=== PATIENT | male | born 1975 | race Caucasian/White ===

== ENCOUNTER → 2016-07-05 | Outpatient (CLI) | payer OTHER ==
[~2016-07-05] MED LIST: ALBU18002 INH; ALLO100T PO; ASPCH81X PO; ATOR-24 PO; CLOP1TAB15 PO; GLIP5TAB11 PO; INSU3INJ3 SQ; LEVO25TA5 PO; METF-384 PO; METO25TA3 PO; MOME100A INH; OXYC-106 PO; PANT40TA PO; PRED10TA PO; SITA25TA PO; SPRIN/30 INH
[2016-07-05 18:12] LABS: BASO % 0.8 %; BASO ABS # 0.09 K/uL (0-0.2); COMPLETE YES; EOS % 2.4 %; IG% 0.5 %; LYMPH % 21.9 %; MEAN CELL VOLUME 89.9 fL (80-100); MEAN CORPUSCULAR HEMOGLOBIN 31.8 pg (25-34); MEAN CORPUSCULAR HGB CONC 35.4 g/dl (32-36); MEAN PLATELET VOLUME 11.3 fL (7.4-10.4); MONO % 7.5 %; NEUT % 66.9 %; PLATELET COUNT 171 K/uL (130-400); RED BLOOD COUNT 5.34 M/uL (4.7-6.1); WHITE BLOOD COUNT 11.39 K/uL (4.8-10.8)
[2016-07-05 18:27] LABS: CHOLESTEROL/HDL RATIO 5.6
[2016-07-06 06:19] LABS: ESTIMATED AVERAGE GLUCOSE 174 mg/dl; HA1C FLAG Normal (Normal)
== END | disposition home or self-care (01) ==
LOC: C.LABSPEC 17:42
PROVIDERS: ATTEND Family Medicine
DX: E11.9 Type 2 diabetes mellitus without complications (principal)

== ENCOUNTER 2016-08-16 05:07 | Observation (INO) | payer OTHER ==
[2016-08-02 09:24] VITALS: BMI 34.0
--- NOTE | 2016-08-02 10:07 | PAT Medication Instructions ---
Service Date Aug 02, 2016. Current Home Medication List Albuterol Sulfate (Proair Respiclick), 2 PUFF INH Q4 PRN for SOB/Wheezing Allopurinol (Zyloprim), 100 MG PO QAM Aspirin (Aspirin Chewable), 81 MG PO QAM Atorvastatin (Lipitor), Unknown Dose PO HS Clopidogrel (Plavix), 75 MG PO QAM Glipizide (Glucotrol), 5 MG PO BID Insulin Detemir (Levemir Flextouch), 25 UNITS SQ HS Levothyroxine Sodium (Levothyroxine Sodium), Unknown Dose PO QAM Metformin Hcl (Glucophage), 1,000 MG PO BID Metoprolol Succ (Toprol Xl) (Toprol-Xl), 12.5 MG PO QAM Mometasone Furoate-Formoterol (Dulera 100/5 Mcg), 1 AER INH QAM Oxycodone/Acetaminophen 10MG/325MG (Percocet 10MG/325MG), 1 TAB PO Q4 PRN for Pain Pantoprazole (Protonix), 40 MG PO QAM Sitagliptin (Januvia), Unknown Dose PO QAM Tiotropium Moore (Spiriva Handihaler), 1 CAP INH QAM Medication Instructions For Your Scheduled Surgery Aspirin (Aspirin Chewable), 81 MG PO QAM (surgeon will call patient with instructions) Clopidogrel (Plavix), 75 MG PO QAM (surgeon will call patient with instructions) - Hold the following medications 48 hours prior to surgery: Metformin Hcl (Glucophage), 1,000 MG PO BID - Hold the following medications the morning of surgery: Sitagliptin (Januvia), Unknown Dose PO QAM Glipizide (Glucotrol), 5 MG PO BID - Take the following medications the morning of surgery with a sip of water: Tiotropium Moore (Spiriva Handihaler), 1 CAP INH QAM Pantoprazole (Protonix), 40 MG PO QAM Oxycodone/Acetaminophen 10MG/325MG (Percocet 10MG/325MG), 1 TAB PO Q4 PRN for Pain (can take up to four hours prior to surgery if needed) Metoprolol Succ (Toprol Xl) (Toprol-Xl), 12.5 MG PO QAM Mometasone Furoate-Formoterol (Dulera 100/5 Mcg), 1 AER INH QAM Levothyroxine Sodium (Levothyroxine Sodium), Unknown Dose PO QAM Allopurinol (Zyloprim), 100 MG PO QAM Albuterol Sulfate (Proair Respiclick), 2 PUFF INH Q4 PRN for SOB/Wheezing ( bring with you to hospital on day of surgery) - Take the following medications as scheduled the night before surgery: Oxycodone/Acetaminophen 10MG/325MG (Percocet 10MG/325MG), 1 TAB PO Q4 PRN for Pain Insulin Detemir (Levemir Flextouch), 25 UNITS SQ HS Glipizide (Glucotrol), 5 MG PO BID Atorvastatin (Lipitor), Unknown Dose PO HS Albuterol Sulfate (Proair Respiclick), 2 PUFF INH Q4 PRN for SOB/Wheezing If you have any questions please call us at [phone] or [phone] ( [place]) or [phone]
[2016-08-02 10:36] LABS: BASO % 0.4 %; BASO ABS # 0.05 K/uL (0-0.2); COMPLETE YES; EOS % 0.7 %; HEMATOCRIT 46.7 % (42-52); IG% 0.5 %; LYMPH % 12.5 %; MEAN CELL VOLUME 89.3 fL (80-100); MEAN CORPUSCULAR HEMOGLOBIN 31.4 pg (25-34); MEAN CORPUSCULAR HGB CONC 35.1 g/dl (32-36); MEAN PLATELET VOLUME 10.5 fL (7.4-10.4); MONO % 3.7 %; NEUT % 82.2 %; PLATELET COUNT 201 K/uL (130-400); RED BLOOD COUNT 5.23 M/uL (4.7-6.1); WHITE BLOOD COUNT 12.82 K/uL (4.8-10.8)
[2016-08-02 10:45] LABS: URINE APPEARANCE CLEAR (CLEAR); URINE BILIRUBIN NEG (NEG); URINE COLOR DK YELLOW; URINE NITRITE NEG (NEG); URINE SPECIFIC GRAVITY 1.034 (1.000-1.030); UROBILINOGEN NEG (NEG)
[2016-08-02 10:49] LABS: BUN/CREATININE RATIO 8.8 (10-20); CALCIUM 8.9 mg/dl (8.5-10.1); CREATININE 1.2 mg/dl (0.60-1.40); POTASSIUM 4.1 mmol/L (3.5-5.1)
[2016-08-02 10:50] LABS: PARTIAL THROMBOPLASTIN RATIO 1.1; PROTHROMBIN TIME (PATIENT) 10.5 SECONDS (9.0-12.0)
[2016-08-02 10:51] LABS: MANUAL MICROSCOPIC REQUIRED? NO; REVIEW REQ? NO
--- NOTE | 2016-08-03 11:18 | Anesthesiology Progress Note ---
Anesthesia Progress Note Date of Service Aug 03, 2016. Progress Notes Per anesthesia guidelines, elective surgeries usually cannot occur for at least one year after having MARIETTA placed. Patient had MARIETTA placed to LAD and Cx on . Patient currently on Plavix and ASA. Patient had stress test on 05/08/16 but MPHR only 70% (no ischemia noted but cannot exclude ischemia at higher heart rate). Patient saw cardio on 08/01/16 in regards to upcoming neck surgery. Towel Folder spoke with surgeon. Per surgeon, cervical surgery is urgent matter for patient and without intervention patient will have permanent nerve damage secondary to spinal compression. Towel Folder recommended dual antiplatelet therapy with Plavix and ASA which surgeon agrees he will continue perioperatively. Patient was explained increased bleeding risk and he accepts risk. Discussed case with Dr. En Bhatia. Since surgery is an urgent matter with possible result of permanent nerve damage if procedure note done soon, will proceed with surgery. Patient was explained increased risk of both bleeding and increased risk of another ID since surgery is less than one year from MARIETTA placement. Patient accepts risks and is willing to proceed.
--- NOTE | 2016-08-15 12:10 | HISTORY & PHYSICAL EXAMINATION ---
DATE OF ADMISSION: 08/16/2016 He is being preoped for anterior cervical discectomy and fusion C5-C6 and C6-C7 cervical spine with iliac crest bone graft. HE HAS AN ALLERGY TO KEFLEX. MEDICAL HISTORY: Positive for angina, heart disease, heart attack, high cholesterol, obesity, asthma, sleep apnea, diabetes on insulin, hypothyroid. No kidney or liver pathology. Acid reflux. SOCIAL HISTORY: He is a nonsmoker, minimal alcohol. PAST SURGERIES: Include sinus surgery by Dr. Linares at [place]. ALLERGIES: ASPIRIN, KEFLEX. MEDICATIONS: Levothyroxine, metoprolol, allopurinol, glipizide, pantoprazole, atorvastatin, baby aspirin, and Ventolin. REVIEW: Denies any blurred vision, double vision, tinnitus, vertigo. His lungs were clear in the office. Denies any shortness of breath. Abdomen soft, nontender. Denies nausea, vomiting, urgency, frequency. Denies current chest pain. Does have some thyroid difficulties. Admits to neck pain, arm pain, trapezius pain and weakness. OBJECTIVE: GENERAL: He is alert, oriented. He is 6 feet 2 inches, 276. Moderate distress. HEENT: Essentially normal. Pupils react to light and accommodation. HEART: Normal S1, S2. LUNGS: Clear. ABDOMEN: Soft, nontender. SKIN: Demonstrates no lesions. NEUROLOGIC: Demonstrates hyperreflexia on the right hand side with Spurling maneuver and Lhermitte sign. His MRI scan demonstrates disc herniations at C5-C6 and C6-C7 with most pressure on the central canal and cord compression. IMPRESSION: A pleasant young gentleman, 40, with multiple other comorbidities including obesity, diabetes, hypertension, sleep apnea, and thyroid disease. From a spinal standpoint, he has spinal cord compression C5-C6 and C6-C7. DISPOSITION: We have offered him surgery for the difficulty. He will be first case on morning, 08/16/2016. It is a 2-level ACDF of the cervical spine, hopefully and possibly iliac crest bone graft as well and anterior plate. He will be in recovery room for about an hour. He may need ICU care afterward because of his other comorbidities. He will definitely need medical management.
[2016-08-16] VITALS (18 sets, daily range): BP systolic 120–153; BP diastolic 75–88; PULSE 78–99; TEMP 36.4–37; O2SAT 92–96; BMI 34.0; BMI 34.6
[~2016-08-16] VITALS: Ht 188 cm; Wt 122.1 kg
[2016-08-16] MEDS ORDERED: LACTATED RINGER'S 1000ML IV SCH (06:00)
[2016-08-16] MEDS ORDERED: CLINDAMYCIN 600 MG/54 ML D5W 54 ML IV SCH (06:00)
[2016-08-16] MEDS ORDERED: NSS 1000ML IV SCH (06:00)
[2016-08-16] MEDS ORDERED: FENTANYL CITRATE INJ 50 MCG/1 ML 2 ML VIAL ONE ×3 (07:04→09:18)
[2016-08-16] MEDS ORDERED: MIDAZOLAM HCL 1 MG/ML 2ML VIAL ONE (07:04)
[2016-08-16] MEDS ORDERED: THROMBIN FOR SOLN 20000 UNIT KIT ONE ×2 (07:04→07:05)
[2016-08-16] MEDS ORDERED: GELATIN SPONGE SZ 100 ONE (07:04)
[2016-08-16] MEDS ORDERED: BACITRACIN 50000 UNIT VIAL ONE (07:05)
[2016-08-16] MEDS ORDERED: BUPIVACAINE/EPINEPHRINE 0.5% MPF 1:200,000 30 ML VIAL ONE ×2 (07:05→07:17)
[2016-08-16] MEDS ORDERED: KETAMINE HCL INJ 50 MG/ML 10 ML VIAL ONE (07:05)
[2016-08-16] MEDS ORDERED: HYDROmorphone INJ 2 MG/ML SYR/VIAL ONE (07:05)
--- NOTE | 2016-08-16 07:13 | History & Physical Bridge Note ---
H&P Re-Evaluation Bridge Note: I have examined the patient, reviewed the History & Physical and in the interval since the performance of the History & Physical I have noted the following changes of clinical significance: No changes noted
[2016-08-16] MEDS ORDERED: ATROPINE SULFATE 0.1 MG/ML 5ML SYR IV PRN (07:30)
[2016-08-16] MEDS ORDERED: ONDANSETRON INJ 2 MG/ML 2 ML VIAL IV PRN ×2 (07:30→10:00)
[2016-08-16] MEDS ORDERED: LABETALOL HCL IV 5 MG/ML 20ML IV ONE ×3 (08:08→08:24)
[2016-08-16] MEDS ORDERED: LARYING-O-JET KIT (LTA) EXT ONE ×2 (08:10)
[2016-08-16] MEDS ORDERED: PROPOFOL IV EMULSION 10 MG/ML 20 ML VIAL IV ONE (08:10)
[2016-08-16] MEDS ORDERED: ROCURONIUM BROMIDE 10 MG/ML 5 ML VIAL ONE ×2 (08:10)
[2016-08-16] MEDS ORDERED: ONDANSETRON INJ 2 MG/ML 2 ML VIAL ONE (08:10)
[2016-08-16] MEDS ORDERED: DEXAMETHASONE SOD INJ 4 MG/ML VIAL ONE (08:10)
[2016-08-16] MEDS ORDERED: SODIUM CHLORIDE 0.9% INJ 10 ML VIAL ONE (08:46)
[2016-08-16] MEDS ORDERED: GLYCOPYRROLATE INJ 0.2 MG/ML VIAL ONE (09:30)
[2016-08-16] MEDS ORDERED: NEOSTIGMINE METHYLSULFATE 5 MG/5 ML SYR ONE (09:30)
--- NOTE | 2016-08-16 09:43 | DIAGNOSTIC IMAGING REPORT ---
Cervical SPINE, INTRAOPERATIVE FLUOROSCOPY HISTORY: ACDF C5 C7. FLUOROSCOPY TIME: 16 seconds. FINDINGS: Intraoperative fluoroscopy was provided for the cervical spine. 3 fluoroscopic spot images were obtained. Anterior cervical discectomy and fusion from C5 through C7. The hardware appears intact. IMPRESSION: Fluoroscopy provided for a C5-C7 ACDF.. Electronically signed by: Deo Garrett M.D. 08/16/2016 9:41 AM Dictated Date/Time: 08/16/2016 9:41 AM
--- NOTE | 2016-08-16 09:56 | [facility] Post Operative Brief Note ---
Immediate Operative Summary Operative Date Aug 16, 2016. Pre-Operative Diagnosis Spinal cord compression C5-C6 and C6-C7. Post-Operative Diagnosis Spinal cord compression C5-C6 and C6-C7. Procedure(s) Performed C5-C6, C6-C7 Anterior Cervical Discectomy and Fusion, with Iliac Crest Bone Graft Surgeon Dr. Joselito Hurtado Office Secretary Surgeon(s) Nicolás Pavon PA-C Estimated Blood Loss 20mL Findings cord compression C5-6, C6-7 Specimens None per surgeon Complication(s) None Disposition Recovery Room / PACU
[2016-08-16] MEDS ORDERED: NALOXONE HCL 0.4 MG/1 ML VIAL/CARP IV PRN (10:00)
[2016-08-16] MEDS ORDERED: RACEPINEPHRINE 2.25% NEBU SOLN 0.5 ML VIAL INH PRN (10:00)
[2016-08-16] MEDS ORDERED: MAGNESIUM HYDROXIDE SUSP 30 ML UDC PO PRN (10:00)
[2016-08-16] MEDS ORDERED: DEXAMETHASONE INJ 8 MG in SYRINGE 0 ML IV PRN (10:00)
[2016-08-16] MEDS ORDERED: LORAZEPAM INJ 0.5 MG in SYRINGE 0.75 ML IV PRN (10:00)
[2016-08-16] MEDS ORDERED: ACETAMINOPHEN IV 1,000 MG in EMPTY BAG 0 ML IV PRN (10:00)
[2016-08-16] MEDS ORDERED: HYDROmorphone INJ 0.5 MG/0.5 ML SYR IV PRN (10:00)
[2016-08-16] MEDS ORDERED: INSULIN HUMAN REGULAR SC STA (10:06)
[2016-08-16] MEDS ORDERED: NovoLIN-R INSULIN PER UNIT CHARGE ONE ×2 (10:12→11:06)
[2016-08-16] MEDS: HYDROmorphone INJ 0.5 MG/0.5 ML SYR IV PRN ×4 (10:20→10:40)
--- NOTE | 2016-08-16 10:23 | OPERATIVE REPORT ---
DATE OF OPERATION: 08/16/2016 PREOPERATIVE DIAGNOSIS: Spinal cord compression and nerve root compression cervical spine, namely C5-6 and C6-7. POSTOPERATIVE DIAGNOSIS: Same. PROCEDURE: Included 2-level ACDF of the cervical spine C5-6, C6-7 with structural left iliac crest autograft. SURGEON: Dr. Hurtado. CHECKOUT OPERATOR: Nicolás Pavon PA-C. COMPLICATIONS: Zero. BLOOD LOSS: Less than 20. OPERATION AND FINDINGS: PROCEDURE: The patient was taken to the operating room and generally intubated, anesthetic provided to the patient, kept on the supine position on the large table. We placed 5 pounds of traction underneath the mandible and the occipital. We secured the patient, padded up all soft tissue areas. We scrubbed first and then prepped both the iliac crest and the cervical spine. Draped the patient sterile. Antibiotics were given, no Hamlin catheter. We then made a transverse skin incision over the C6 vertebral body dissecting the soft tissue. We were fortunate we came right down on the C5-6 interval verifying this with C-arm. We then did formal discectomies at C5-6 and C6-7 cervical spine taking out all disc material. We were back and through the PLL. We were out laterally to the neural foramen. All conceivably visible disc material was retrieved. We had good visibility. We then went to the left iliac crest, made a skin incision, fascial incision, I harvested a structural autograft, essentially a cm in anterior height tapering to 8 mm approximately 15 mm across. This structural autograft was used with the Globus coalition device in the cervical spine area. Interbody device was placed into the intervals at C6-7, 5-6, fastened with the superior and inferior screw at 2 levels. The fit appeared to be anatomic. We placed the neck under a slight amount of compression. We irrigated, closed over a Malott drain with 2-0 Vicryl suture, 4-0 Monocryl on the skin. The iliac crest was closed with 1 Vicryl, 2-0 and 3-0 nylon. Sterile dressings applied. The patient returned to PACU improved stable condition. No complications. Sponge and needle count correct at the close. I attest to the content of the Intraoperative Record and any orders documented therein. Any exceptio ns are noted below.
[2016-08-16] MEDS: LABETALOL HCL IV 5 MG/ML 20ML IV PRN ×2 (10:34→10:47)
[2016-08-16] MEDS ORDERED: INSULIN HUMAN REGULAR SC ONE (11:00)
--- NOTE | 2016-08-16 11:04 | Anesthesiology Progress Note ---
Anesthesia Post Op Note Date & Time Aug 16, 2016 at 11:03 Vital Signs Pain Intensity: 0 Vital Signs Past 12 Hours Date Time Temp Pulse Resp B/P Pulse Ox O2 Delivery O2 Flow Rate FiO2 08/16/16 10:55 82 14 145/83 95 Nasal Cannula 3 08/16/16 10:45 88 14 145/94 94 Nasal Cannula 3 08/16/16 10:35 82 14 151/83 93 Nasal Cannula 3 08/16/16 10:30 91 14 143/97 93 Nasal Cannula 3 08/16/16 10:25 90 14 164/98 98 Mask 5 08/16/16 10:15 87 14 124/79 98 Mask 10 08/16/16 10:05 85 14 146/82 98 Mask 10 08/16/16 09:59 36.4 89 14 137/92 98 Mask 10 08/16/16 05:58 36.7 95 18 133/88 94 Room Air Notes Mental Status: alert / awake / arousable, participated in evaluation Pt Amnestic to Procedure: Yes Nausea / Vomiting: adequately controlled Pain: adequately controlled Airway Patency, RR, SpO2: stable & adequate BP & HR: stable & adequate Hydration State: stable & adequate Anesthetic Complications: no major complications apparent
[2016-08-16] MEDS ORDERED: IV FLUIDS COMPLETED PRN (11:30)
[2016-08-16] MEDS ORDERED: HYDROmorphone INJ 1 MG/ML SYR IV PRN (12:30)
[2016-08-16] MEDS ORDERED: ALBUTEROL HFA 8 GM INHALER INH PRN (12:30)
[2016-08-16] MEDS: SODIUM CHLORIDE 0.9% 1000ML 1,000 ML IV SCH ×2 (12:37→21:55)
[2016-08-16] MEDS: DEXAMETHASONE INJ 6 MG in SYRINGE 0 ML IV SCH ×2 (13:54→21:55)
--- NOTE | 2016-08-16 15:41 | Discharge Instructions ---
Discharge Instructions Date of Service Aug 16, 2016. Admission Reason for Admission: Cervical Disc Herniation, Spinal Stenosis Discharge Discharge Diagnosis / Problem: spinal stenosis Discharge Goals Goal(s): Improve function Activity Recommendations Activity Limitations: as noted below Lifting Limitations: until after follow-up appointment Exercise/Sports Limitations: until after follow-up appointment May Resume Sexual Activity: after follow-up appointment Shower/Bathe: keep incision dry Driving or Machine Use: . Instructions / Follow-Up Instructions / Follow-Up MEDICATIONS: Please take your prescriptions as instructed at your pre-op appointment. SPECIAL CARE: The following information is intended to answer some of the common questions and concerns regarding your surgery. Each patient is an individual and receives individual counselling throughout the course of treatment, from diagnosis to surgery all the way through recovery. What follows is not an exhaustive list, but should be a useful guide to some of the common questions and concerns patients have regarding their surgeries. These are not provided to keep you from calling us; rather, they give you something accurate and concrete to reference as you recover from your procedure. If you need us, we are available to you. As always, if you are not sure about something, call us at [phone]. MEDICAL EMERGENCIES: For these conditions, call 911 or go to your local hospital-based Emergency Department - not [facility] or equivalent. * Paralysis * Severe chest pain or difficulty breathing * Swelling or redness of either leg Spine procedures can be rather complex and though complications are rare, they do occur. In such cases, effective advice regarding emergency situations cannot always be addressed over the telephone. You may be referred to the emergency department for more effective management of your problem. Activity Limitations: It is important to give your body time to heal, so please limit your activities : * In general, don't do anything that moves your spine too much. You should avoid contact sports, twisting or heavy lifting while you recover. * 5-10 pounds is all you should attempt to lift. * You should not plan on driving for approximately 3 weeks and you should avoid traveling more than 30-45 minutes at a time. Longer trips should be broken down with walking breaks spaced appropriately. * Physical therapy is not usually required. * Walking and good posture practices will help you recover and regain your function. * Avoid straining or sudden changes in position. * In general, the goal is to take it easy and recover. Don't cause any new problems. Just relax. Showers: * Do not take a bath, use a Jacuzzi or hot tub or otherwise submerge your incision. * It is usually safe to take a shower 4-5 days after your surgery. * Your incision does not require any special creams or ointments. * Simply clean it with soap and water, dry and re-dress with a clean bandage afterwards. Incision: * Keep incision clean, dry and protected until your first follow-up appointment. * Some amount of drainage and redness is normal. Any drainage should be fairly clear and not have a foul odor. * If you feel anything is wrong or you have excessive drainage, please call us. * Your stitches and lc will be removed 10-14 days after your surgery. At the time of your first post-op visit. * Neck surgeries are typically closed with a suture underneath the skin. The steri-strips over the incision should be maintained until we see you in the office. Bracing: * You may be provided with a back or neck brace to encourage good posture and prevent injury. It will remind you not to do too much as you heal and will alert others to the fact that you have had a surgery. * Back braces may be removed for showers and when you are resting at home. They must be worn when you are walking around for any period of time or for travel. * For neck surgery, you will likely be provided with two cervical collars. The soft collar (Morrow or foam rubber) is worn most commonly throughout the day and while sleeping. The plastic collar (provided at the hospital) is for showering/bathing. * Except while eating, collars should remain in place. More specifically, bracing is provided for a purpose and should be worn. * Please obtain your brace or collars prior to your operation and bring them to the hospital with you on the day of surgery. * You should also bring your collars to your post-op appointment with Dr. Hurtado. You should always take good care of your body and practice healthy habits, especially following surgery. You should: * Follow your doctor's treatment plan * Sit and stand properly with good posture (ears over shoulders, shoulders over hips) Don't slouch * Learn to lift correctly * Exercise regularly (low-impact aerobic exercise is especially good, but check with your doctor first) * Generally, be up and walking for 5-10 minutes at a time at least 3-4 times per day from the day you get home * Increasing walking to tolerance until you can walk for 20-30 minutes at a time * Attain and maintain a healthy body weight * Eat healthy foods ( a well-balanced, low-fat diet rich in fruits and vegetables) and get enough calcium * Avoid excessive use of alcohol When to call our office - If you notice any of the following: * Increased pain not relieve by pain medicine * Fevers greater then 100 degrees F, chills or flu symptoms * Increased redness around incision * Drainage from the incision that is not clear * Any foul smelling drainage * Swelling or fluid collection beneath the skin Miscellaneous: * In the hospital, you may be given a walker or cane for support while walking. These are temporary needs and are intended to prevent injuries due to falls. You may discontinue them when you feel strong and steady enough on your feet. * Sleep in a comfortable position. We find that many patients find a lounge chair or recliner with several pillows to be beneficial in the early post-operative period. * The support stockings should be used for 7-10 days and may be discontinued when you are back to walking more and conducting usual household activities. No problem is insignificant. We are here to help you and get you well. Contact us at [phone]. Definitions: Foraminotomy: If part of the disc or a bone spur (osteophyte) is pressing on a nerve as it leaves the vertebra (through an exit called the foramen), a foraminotomy may be done. Otomy means "to make an opening." A foraminotomy is making the opening of the foramen larger, so the nerve can exit without being compressed. Laminotomy: Similar to the foraminotomy, a laminotomy makes a larger opening, this time in your bony plate protecting your spinal canal and spinal cord (the lamina). The lamina may be pressing on your nerve, so the surgeon may make more room for the nerves using a laminotomy. Laminectomy: Sometimes, a laminotomy is not sufficient. The surgeon may need to remove all or part of the lamina. This procedure is called a laminectomy. This can often be done at many levels without any harmful effects. Current Hospital Diet Patient's current hospital diet: Full Liquid Diet; advance as tolerated Discharge Diet Recommended Diet: Full Liquid Diet Procedures Procedures Performed: C5-C6, C6-C7 Anterior Cervical Discectomy and Fusion, with Iliac Crest Bone Graft Pending Studies Studies pending at discharge: no Laboratory Results Hemoglobin A1c Test 07/05/16 13:47 Range/Units Estimated Average Glucose 174 mg/dl Hemoglobin A1c 7.7 H 4.5-5.6 % Lipid Panel Test 07/05/16 13:47 Range/Units Triglycerides Level 326 H 0-150 mg/dl Cholesterol Level 200 0-200 mg/dl HDL Cholesterol 36 mg/dl Cholesterol/HDL Ratio 5.6 LDL Cholesterol, Calculated 99 mg/dl Medical Emergencies . Who to Call and When: Medical Emergencies: If at any time you feel your situation is an emergency, please call 911 immediately. . Non-Emergent Contact Non-Emergency issues call your: Surgeon . "Provider Documentation" section prepared by Joselito Hurtado. VTE Core Measure Inpt VTE Proph given/why not?: Treatment not indicated
[2016-08-16] MEDS: HYDROCODONE/ACETAMOPHEN 5/325MG TAB PO PRN (16:15)
[2016-08-16] MEDS: CLINDAMYCIN IV 600 MG in DEXTROSE 5% ADD-VANTAGE 50ML 50 ML IV SCH ×2 (16:57→23:29)
[2016-08-16] MEDS ORDERED: GLUCAGON FOR INJ 1 MG VIAL SQ PRN (17:30)
[2016-08-16] MEDS ORDERED: DEXTROSE 50% 50 ML SYR IV PRN (17:30)
[2016-08-16] MEDS ORDERED: GLUCOSE 10 TABS/TUBE PO PRN (17:30)
[2016-08-16] MEDS ORDERED: GLUCOSE 40% GEL 15 GM TUBE PO PRN (17:30)
[2016-08-16] MEDS ORDERED: PHARMACY GLYCEMIC MGMT CONSULT PRN (17:44)
--- NOTE | 2016-08-16 18:42 | Medical Consult ---
Consultation Date of Consultation: Aug 16, 2016. Attending Physician: Joselito Hurtado DO Reason for Consultation: Post OP medical care History of Present Illness Patient is a 40 yr old male with PMH of DM II on Insulin, Rheumatoid arthritis, CAD S/P Stents, Hypothyroidism, dyslipidemia, ZOË on CPAP, Gout, Asthma was admitted post surgery after undergoing anterior cervical discectomy and fusion C5-C6 and C6-C7 cervical spine with iliac crest bone graft. Patient is interviewed and examined post OP. Patient states he is doing well post OP. Denies any chest pain, SOB, dizziness, headache, nausea, vomiting, abd pain or pain at surgical site. His vitals are stable post OP. States having left UE weakness, numbness and tingling since 3 months duration and was evaluated by and diagnosed to have spinal cord compression of C5-C6 and C6-C7. Patient had undergone elective cervical discectomy. Past Medical/Surgical History Medical Problems: (1) Asthma Status: Chronic (2) CAD (coronary artery disease) Status: Chronic (3) Diabetes mellitus Status: Chronic (4) Dyslipidemia Status: Chronic (5) Gout Status: Chronic (6) Gout Status: Chronic (7) Hypothyroid Status: Chronic (8) ZOË (obstructive sleep apnea) Status: Chronic (9) Rheumatoid aortitis Status: Chronic SURGICAL HISTORY: CORONARY ARTERY STENTING SINUS SURGERY Family History Reviewed. Not relevant Social History Smoking Status: Former Smoker Alcohol Use: socially Drug Use: none Allergies Coded Allergies: Aspirin (Verified Allergy, Intermediate, WHEEZING, 08/16/16) Cephalexin (Verified Allergy, Unknown, HIVES, 08/16/16) Home Medications Reviewed Current Inpatient Medications Current Inpatient Medications Medications (Trade) Dose Ordered Sig/Linsey Route Start Time Stop Time Status Last Admin Dose Admin Lactated Ringer's 1,000 ml @ 15 mls/hr Q24H IV 08/16/16 06:00 08/17/16 05:59 08/16/16 06:22 15 MLS/HR Sodium Chloride (Nss 1000ml) 1,000 ml @ 15 mls/hr Q24H IV 08/16/16 06:00 08/17/16 05:59 Racepinephrine 0.5 ml 0.5 ml ONE PRN INH 08/16/16 10:00 08/16/16 23:59 Acetaminophen/ Empty Bag (Ofirmev Iv/ Empty Iv Bag 100ml) 100 ml @ 400 mls/hr Q8H PRN IV 08/16/16 10:00 09/15/16 09:59 Hydromorphone HCl (Dilaudid Inj) 0.5 mg Q3H PRN IV 08/16/16 10:00 08/30/16 09:59 Magnesium Hydroxide (Milk Of Magnesia Susp) 30 ml DAILY PRN PO 08/16/16 10:00 09/15/16 09:59 Docusate Sodium (coLACE CAP) 100 mg BID PO 08/16/16 21:00 09/15/16 20:59 Ondansetron HCl 4 mg 4 mg Q6 PRN IV 08/16/16 10:00 09/15/16 09:59 Clindamycin Phosphate 600 mg/ Dextrose 54 ml @ 100 mls/hr Q8H IV 08/16/16 16:00 08/17/16 08:33 08/16/16 16:57 100 MLS/HR Lorazepam 0.5 mg/ Syringe 1 ml @ 1 mls/min Q8H PRN IV 08/16/16 10:00 09/15/16 09:59 Dexamethasone Sodium Phosphate 6 mg/Syringe 1.5 ml @ 1 mls/min Q8H IV 08/16/16 14:00 08/17/16 06:02 08/16/16 13:54 1 MLS/MIN Sodium Chloride (Nss 1000ml) 1,000 ml @ 80 mls/hr [id number] IV 08/16/16 09:53 08/17/16 09:52 08/16/16 12:37 80 MLS/HR Acetaminophen/ Hydrocodone Bitart (Alvin 5/325 Tab) 1 tablet for pain scale ... Q4H PRN PO 08/16/16 10:00 08/30/16 09:59 08/16/16 16:15 2 TAB Bisacodyl (Dulcolax Tab) 5 mg DAILY PRN PO 08/18/16 06:00 09/17/16 05:59 Bisacodyl 10 mg 10 mg DAILY PRN OR 08/18/16 06:00 09/17/16 05:59 Dexamethasone Sodium Phosphate/ Syringe (Decadron Inj/ Syringe) 2 ml @ 1 mls/min ONE PRN IV 08/16/16 10:00 08/16/16 23:59 Naloxone HCl (Narcan Inj) 0.1 mg Q5M PRN IV 08/16/16 10:00 09/15/16 09:59 Allopurinol (Zyloprim Tab) 100 mg QAM PO 08/17/16 09:00 09/16/16 08:59 Aspirin (Ecotrin Tab) 81 mg QAM PO 08/17/16 09:00 09/16/16 08:59 Clopidogrel Bisulfate (plAVix TAB) 75 mg QAM PO 08/17/16 09:00 09/16/16 08:59 Metoprolol Succinate (Toprol Xl Tab) 12.5 mg QAM PO 08/17/16 09:00 09/16/16 08:59 Pantoprazole Sodium (Protonix Tab) 40 mg QAM PO 08/17/16 09:00 09/16/16 08:59 Tiotropium [place] (Spiriva Handihaler Inhaler) 1 puff QAM INH 08/17/16 09:00 09/16/16 08:59 Albuterol (Ventolin Hfa Inhaler) 2 puffs Q4H PRN INH 08/16/16 12:30 09/15/16 12:29 Miscellaneous (Iv Fluids Completed) 1 ea PRN PRN N/A 08/16/16 11:30 08/16/17 11:29 Hydromorphone HCl (Dilaudid Inj) 1 mg Q3H PRN IV 08/16/16 12:30 08/30/16 12:29 Insulin Aspart (novoLOG ASPART) SLIDING SCALE If C... ACHS SC 08/16/16 18:05 09/15/16 18:04 Glucose (Glucose 40% Gel) 15-30 GRAMS 15 GRAMS... UD PRN PO 08/16/16 17:30 09/15/16 17:29 Glucose (Glucose Chew Tab) 4-8 Tablets 4 Tabl... UD PRN PO 08/16/16 17:30 09/15/16 17:29 Dextrose (Dextrose 50% 50ML Syringe) 25-50ML OF 50% DW IV FOR... UD PRN IV 08/16/16 17:30 09/15/16 17:29 Glucagon (Glucagon Inj) 1 mg UD PRN SQ 08/16/16 17:30 09/15/16 17:29 Miscellaneous Information (Consult Glycemic Management Pharmacy) 1 ea UD PRN N/A 08/16/16 17:44 09/15/16 17:43 Insulin Detemir (Levemir Flexpen/ FlexTouch) SEE PROTOCOL HS SQ 08/16/16 21:00 09/15/16 20:59 Levothyroxine Sodium (Synthroid Tab) 12.5 mcg QAM PO 08/17/16 09:00 09/16/16 08:59 UNV Atorvastatin Calcium (Lipitor Tab) 80 mg HS PO 08/16/16 21:00 09/15/16 20:59 UNV Ranitidine HCl (zANTac TAB) 150 mg HS PO 08/16/16 21:00 09/15/16 20:59 UNV Salmeterol Xinafoate/ Fluticasone (Advair Diskus 250/50 Inh) 1 puff BID INH 08/16/16 21:00 09/15/16 20:59 UNV Prednisone (PredniSONE TAB) 10 mg DAILY PO 08/17/16 09:00 09/16/16 08:59 UNV Review of Systems See HPI for pertinent positives & negatives. A total of 10 systems reviewed and were otherwise negative. Physical Exam Date Time Temp Pulse Resp B/P Pulse Ox O2 Delivery O2 Flow Rate FiO2 08/16/16 15:56 78 12 95 Nasal Cannula 3.0 08/16/16 14:23 36.8 90 16 125/75 96 Nasal Cannula 3.0 Humidified Oxygen 08/16/16 14:23 36.8 90 16 125/75 96 Nasal Cannula 3.0 Humidified Oxygen 08/16/16 13:40 36.4 80 18 120/76 95 Nasal Cannula 3.0 Humidified Oxygen 08/16/16 13:29 36.4 96 18 120/76 95 Nasal Cannula 3.0 Humidified Oxygen 08/16/16 12:30 36.5 80 18 123/82 95 Nasal Cannula 3.0 08/16/16 12:25 36.5 85 18 123/82 95 Nasal Cannula 3.0 08/16/16 12:11 84 12 94 Partial Rebreather 3.0 80 08/16/16 12:00 Nasal Cannula 3.0 Humidified Oxygen 08/16/16 11:55 36.7 85 16 136/82 95 Nasal Cannula 3.0 08/16/16 11:55 36.7 92 16 136/82 95 Nasal Cannula 3.0 85 08/16/16 11:36 95 Nasal Cannula 3.0 08/16/16 11:25 37.0 92 16 153/79 95 Nasal Cannula 3.0 08/16/16 11:24 37.0 92 16 153/79 92 Nasal Cannula 3.0 08/16/16 11:15 36.4 78 14 146/82 96 Nasal Cannula 3 08/16/16 11:05 36.4 90 14 143/83 95 Nasal Cannula 3 08/16/16 10:55 82 14 145/83 95 Nasal Cannula 3 08/16/16 10:45 88 14 145/94 94 Nasal Cannula 3 08/16/16 10:35 82 14 151/83 93 Nasal Cannula 3 08/16/16 10:30 91 14 143/97 93 Nasal Cannula 3 08/16/16 10:25 90 14 164/98 98 Mask 5 08/16/16 10:15 87 14 124/79 98 Mask 10 08/16/16 10:05 85 14 146/82 98 Mask 10 08/16/16 09:59 36.4 89 14 137/92 98 Mask 10 08/16/16 05:58 36.7 95 18 133/88 94 Room Air General Appearance: WD/WN, no apparent distress Head: normocephalic, atraumatic Eyes: normal inspection, PERRL, EOMI, sclerae normal ENT: normal ENT inspection, hearing grossly normal Neck: supple, no JVD, trachea midline, + pertinent finding (In Neck collar and surgical site in bandage on left side of neck) Respiratory/Chest: chest non-tender, lungs clear, normal breath sounds, no respiratory distress, no accessory muscle use Cardiovascular: regular rate, rhythm, no edema, no murmur Abdomen/GI: normal bowel sounds, non tender, soft Back: normal inspection Extremities/Musculoskelatal: normal inspection, no calf tenderness, no pedal edema, normal range of motion, + pertinent finding (Left iliac crest region in bandage) Neurologic/Psych: [employer] II-XII nml as tested, alert, normal mood/affect, oriented x 3, + pertinent finding (Minimal Left UE weakness. ) Skin: normal color, warm/dry, no rash Lymphatic: no adenopathy Laboratory Results Last 24 Hours Test 08/16/16 05:48 08/16/16 10:01 08/16/16 10:54 08/16/16 12:27 Bedside Glucose 136 mg/dl 286 mg/dl 308 mg/dl 299 mg/dl Assessment & Plan Spinal cord compression of C5-C6 and C6-C7 S/P discectomy and fusion C5-C6 and C6-C7 cervical spine with iliac crest bone graft POD # 0 Surgery done by Pain control, wound care, per orthopedic surgery Bowel regimen to prevent constipation PT/OT Vitals stable post OP DM II Uncontrolled likely secondary to post op stress and steroids Will hold oral diabetic meds Check A1c ISS, Levemir, Accu checks, Diabetic diet Pharmacy Glycemic control consult CAD S/P stents: Denies any chest pain Continue ASA, plavix, BB, statins Hypothyroidism: Continue Levothyroxine Asthma: No signs of exacerbation Continue home inhalers Rheumatoid arthritis: Continue PO prednisone Takes prednisone 10mg daily ZOË: Continue CPAP at bedtime Gout: Continue allopurinol GERD: Continue PPI, Ranitidine DVT PX: Per Primary team Currently on SCDs code status: full code DISPOSITION: Per Primary team Thank you for this consultation. We will follow the patient with you during their hospital stay. You can reach a [facility] via pager @ .
[2016-08-16] MEDS: INSULIN ASPART 100 UNITS/ML 3 ML PEN SC SCH ×2 (18:54→21:01)
--- NOTE | 2016-08-16 20:35 | Pharmacy Progress Note ---
Glycemic Control Intl Consult Date of Service Aug 16, 2016. Scope Glycemic Pharmacist consulted by Dr Palafox on 08/16/16 for glycemic control and to write orders per [facility] inpatient glycemic control protocol Objective Weight (Kilograms): 122.100 Accuchecks BSG (last 24hrs): Test 08/16/16 05:48 08/16/16 10:01 08/16/16 10:54 08/16/16 12:27 Bedside Glucose 136 mg/dl (70-99) 286 mg/dl (70-99) 308 mg/dl (70-99) 299 mg/dl (70-99) HbA1c 07/05/16 HgbA1c 7.7% Recent Pertinent Medications Outpatient Anti-diabetic Regimen: * Levemir 25 units hs, Glipizide 5 mg bid, Metformin 1 Gm bid, Januvia 25 mg daily (note patient was taking prednisone) * A1c = 7.7 % 07/05/16 The patient is currently receiving: * Basal insulin: Levemir 25 units every hs * Correctional Insulin: Novolog Correction per scale ACHS Goal Range: Low 120 mg/dL - High 160 mg/dL Correction Factor: 35 mg/dL/unit * Prandial insulin: Per carb ratio of 1 unit per 12 grams CHO consumed * Oral Agents: none Risk Factors for Insulin Resistance: * Steroids: dexamethasone 8mg in OR, then 6 mg q8h x 3 doses; will restart home dose prednisone 10 mg daily in am * Infection: on clindamycin perioperatively * Pressors: no * IVF: NS @ 80 ml/hr * Recent Surgery: OR today spinal surgery * Diet: npo advancing to full liquid * Mechanical Ventilation: no Assessment & Plan ASSESSMENT: * ADA & AACE recommend a goal blood sugar range 140-180 mg/dl for the majority of critically ill & non-critically ill patients. However, more stringent targets may be selected in individual cases. * 40 yo type 2 diabetic not well controlled on Levemir and oral meds,now S/P spinal surgery. BSG's rising due to stress of surgery and extra steroids perioperatively. Will start weight-based correction and carb ratio, continue Levemir, and reassess in am. PLAN FOR INPATIENT GLYCEMIC CONTROL: * Holding outpatient oral diabetes medications * Basal insulin with Levemir 25 units SQ hs, give 15 units if BSG is less than 100 * Correctional Insulin with NOVOLOG per scale ACHS or Q6hrs while NPO * Goal Range: Low 100 mg/dL - High 140 mg/dL * Correction Factor: 20 mg/dL/unit * Nutritional / Prandial insulin per carb ratio of 1 unit per 8 grams CHO consumed * Please note that the plan above was derived based on current level of insulin resistance and hospital stress. These recommendations are appropriate for inpatient admission only. Plan of care upon discharge will need to be reassessed to avoid potential outpatient hypo/hyperglycemia. Thank you.
[2016-08-16] MEDS: DOCUSATE SODIUM 100 MG CAP PO SCH (20:57)
[2016-08-16] MEDS: FLUTICASONE/SALMETEROL 250/50 (ADVAIR) 14 PUFF/1 INHALER INH SCH (20:57)
[2016-08-16] MEDS ORDERED: INSULIN DETEMIR FLEXPEN/FLEX TOUCH 100 UNITS/ML 3ML SQ SCH (21:00)
[2016-08-16] MEDS ORDERED: RANITIDINE HCL 150 MG TAB PO SCH (21:00)
[2016-08-16] MEDS ORDERED: ATORVASTATIN 40 MG TAB PO SCH (21:00)
[2016-08-17] VITALS (11 sets, daily range): BP systolic 135–168; BP diastolic 79–95; PULSE 87–105; TEMP 36.4–36.8; O2SAT 92–95; Ht 188 cm; Wt 122.1 kg
[2016-08-17] MEDS: HYDROCODONE/ACETAMOPHEN 5/325MG TAB PO PRN ×3 (00:29→13:12)
[2016-08-17] MEDS ORDERED: INSULIN ASPART 100 UNITS/ML 3 ML PEN SC SCH (02:00)
[2016-08-17 05:32] LABS: BASO ABS # 0.01 K/uL (0-0.2); COMPLETE YES; HEMATOCRIT 40.7 % (42-52); IG% 0.6 %; LYMPH % 6.7 %; LYMPH ABS # 1.44 K/uL (1.2-3.4); MEAN CELL VOLUME 87.3 fL (80-100); MEAN CORPUSCULAR HEMOGLOBIN 30.7 pg (25-34); MEAN CORPUSCULAR HGB CONC 35.1 g/dl (32-36); MEAN PLATELET VOLUME 10.2 fL (7.4-10.4); MONO % 5.5 %; NEUT % 87.2 %; PLATELET COUNT 249 K/uL (130-400); RED BLOOD COUNT 4.66 M/uL (4.7-6.1); WHITE BLOOD COUNT 21.41 K/uL (4.8-10.8)
[2016-08-17] MEDS: DEXAMETHASONE INJ 6 MG in SYRINGE 0 ML IV SCH (05:56)
[2016-08-17 05:58] LABS: BUN/CREATININE RATIO 11.3 (10-20); CALCIUM 8.4 mg/dl (8.5-10.1); CREATININE 1.2 mg/dl (0.60-1.40); POTASSIUM 4.2 mmol/L (3.5-5.1)
[2016-08-17] MEDS ORDERED: LEVOTHYROXINE 25 MCG TAB PO SCH (06:00)
[2016-08-17 06:41] LABS: ESTIMATED AVERAGE GLUCOSE 192 mg/dl; HA1C FLAG Normal (Normal)
[2016-08-17] MEDS: CLINDAMYCIN IV 600 MG in DEXTROSE 5% ADD-VANTAGE 50ML 50 ML IV SCH (08:08)
[2016-08-17] MEDS ORDERED: METFORMIN HCL 500 MG TAB PO SCH ×2 (08:30)
[2016-08-17] MEDS: FLUTICASONE/SALMETEROL 250/50 (ADVAIR) 14 PUFF/1 INHALER INH SCH (08:55)
[2016-08-17] MEDS: DOCUSATE SODIUM 100 MG CAP PO SCH (08:55)
[2016-08-17] MEDS ORDERED: TIOTROPIUM BROMIDE 5 PUFF/90 MCG INH INH SCH (09:00)
[2016-08-17] MEDS ORDERED: METOPROLOL SUCC 25MG EXT REL TAB PO SCH (09:00)
[2016-08-17] MEDS ORDERED: PANTOprazole SOD 40 MG TAB PO SCH (09:00)
[2016-08-17] MEDS ORDERED: ASPIRIN 81 MG ECTAB PO SCH (09:00)
[2016-08-17] MEDS ORDERED: ALLOPURINOL 100 MG TAB PO SCH (09:00)
[2016-08-17] MEDS ORDERED: CLOPIDOGREL BISULFATE 75 MG TAB PO SCH (09:00)
[2016-08-17] MEDS: INSULIN ASPART 100 UNITS/ML 3 ML PEN SC SCH ×2 (09:03→13:21)
--- NOTE | 2016-08-17 11:57 | Pharmacy Progress Note ---
Glycemic Control: Progress Nt Date of Service Aug 17, 2016. Scope Glycemic Pharmacist consulted by Dr Palafox on 08/16/16 for glycemic control and to write orders per [facility] inpatient glycemic control protocol. Objective Accuchecks BSG (last 24hrs): Test 08/16/16 12:27 08/16/16 18:34 08/17/16 02:04 08/17/16 05:11 Bedside Glucose 299 mg/dl (70-99) 330 mg/dl (70-99) 181 mg/dl (70-99) Random Glucose 250 mg/dl (70-99) Test 08/17/16 07:58 Bedside Glucose 312 mg/dl (70-99) Laboratory Data (last 24hrs) Test 08/17/16 05:11 Anion Gap 12.0 mmol/L BUN/Creatinine Ratio 11.3 Blood Urea Nitrogen 14 mg/dl Creatinine 1.20 mg/dl Hemoglobin A1c 8.3 % Potassium Level 4.2 mmol/L Sodium Level 136 mmol/L White Blood Count 21.41 K/uL Red Blood Count 4.66 M/uL Hemoglobin 14.3 g/dL Hematocrit 40.7 % Mean Corpuscular Volume 87.3 fL Mean Corpuscular Hemoglobin 30.7 pg Mean Corpuscular Hemoglobin Concent 35.1 g/dl Platelet Count 249 K/uL Mean Platelet Volume 10.2 fL Neutrophils (%) (Auto) 87.2 % Lymphocytes (%) (Auto) 6.7 % Monocytes (%) (Auto) 5.5 % Eosinophils (%) (Auto) 0.0 % Basophils (%) (Auto) 0.0 % Neutrophils # (Auto) 18.67 K/uL Lymphocytes # (Auto) 1.44 K/uL Monocytes # (Auto) 1.17 K/uL Eosinophils # (Auto) 0.00 K/uL Basophils # (Auto) 0.01 K/uL HbA1c: Test 08/17/16 05:11 Hemoglobin A1c 8.3 % (4.5-5.6) H Recent Pertinent Medications Outpatient Anti-diabetic Regimen: * Levemir 25 units Q HS * Glipizide 5mg PO BID * Metformin 1gm PO BID * Januvia 25mg Q AM * A1c = 7.7 % 07/05/16 The patient is currently receiving: * Basal insulin: Levemir Q HS: 15 units if BSG less than 100; 25 units if BSG 100 or greater * Correctional Insulin: Novolog Correction per scale ACHS Goal Range: Low 100 mg/dL - High 140 mg/dL Correction Factor: 20 mg/dL/unit * Prandial insulin: Per carb ratio of 1 unit per 8 grams CHO consumed * Oral Agents: None currently Risk Factors for Insulin Resistance: * Steroids: Dexamethasone 8mg IV given in OR 08/16 + 6mg IV Q 8 hrs x 3 doses; last dose given ~0600 08/17 * Infection: n/a * Pressors: n/a * IVF: NS @ 80cc/hr * Recent Surgery: POD # 1 ACDF * Diet: ordered T2DM diet and tolerating well * Mechanical Ventilation: n/a Assessment & Plan ASSESSMENT: 08/17/16 * Type 2 diabetic experiencing stress-induced / steroid-induced hyperglycemia in the post-op period * BSGs peaked at 344 last evening, but has since trended down a little overnight * The last dose of dexamethasone IV was given this AM, however I would expect the insulin resistance to persist for another 24-48 hrs given the biologic half- life of this steroid. * Will increase the Novolog correction and prandial insulin doses * Will also restart the patient's metformin as he is tolerating a diet and renal fxn has been assessed and adequate * Will continue a 0200 BSG check overnight tonight for additional coverage w/ Novolog rather than increasing the basal insulin dose as the steroid effects should begin to dissipate in the next 24-48 hrs * BSG pattern will be followed today as insulin doses may need increased even further. PLAN FOR INPATIENT GLYCEMIC CONTROL: PLAN FOR INPATIENT GLYCEMIC CONTROL: * Continuing Levemir 25 units SQ Q HS; but give 1/2 dose if BSG less than 110 ( 12 units) * Changing correction factor to 18 mg/dl/unit * Changing carb ratio to 1 unit per 6 grams CHO consumed * Continuing goal range Low 100 mg/dL - High 140 mg/dL * Add BSG check at 0200 tonight and cover w/ Novolog per the above parameters RECOMMENDATIONS FOR DISCHARGE: * Resume home regimen of Levemir + Glipizide + Metformin + Januvia; however consider adding a sliding scale to assist w/ glycemic control as patient reported having hyperglycemia when prednisone was started. It is the patient's understanding he was to continue the prednisone on discharge. Would recommend the following sliding scale on discharge (would recommend sending the Novolog pen used as inpatient home w/ him): * Novolog scale: BSG 150-175 give 1 unit; BSG 176-200 give 2 units; BSG 201- 225 give 3 units; BSG 226-250 give 4 units; BSG above 250 give 5 units * Please note that the plan above was derived based on current level of insulin resistance and hospital stress. These recommendations are appropriate for inpatient admission only. Plan of care upon discharge will need to be reassessed to avoid potential outpatient hypo/hyperglycemia. Thank you.
--- NOTE | 2016-08-17 12:21 | DISCHARGE SUMMARY ---
SUBJECTIVE: Minimal complaints of pain, no shortness of breath, confusion, chest pain. OBJECTIVE: Vital signs stable, alert, oriented. Wound is clean. ASSESSMENT: Status post spinal reconstruction cervical spine anterior. PROCEDURE: He will be discharged home later on today in improved stable condition. He has instructions, precautions provided on 2 different occasions. Collar for support. Medications at home. We will see him back in the office in 10-11 days. He is to call if any problems arise and that has been given as part of his instruction sheet.
[2016-08-18] MEDS ORDERED: INSULIN ASPART 100 UNITS/ML 3 ML PEN SC ONE (02:00)
[2016-08-18] MEDS ORDERED: BISACODYL 10 MG SUPP PR PRN (06:00)
[2016-08-18] MEDS ORDERED: BISACODYL 5 MG TABEC PO PRN (06:00)
== END 2016-08-17 14:37 | disposition home or self-care (01) ==
LOC: ENRESERVDT → ENRESERVTM → C.ACU 05:07 → C.3E 05:40
PROVIDERS: ADMIT Orthopaedic Surgery Orthopaedic Surgery of the Spine; ATTEND Orthopaedic Surgery Orthopaedic Surgery of the Spine
DX: G95.20 Unspecified cord compression (principal); Z79.82 Long term (current) use of aspirin; Z79.899 Other long term (current) drug therapy

== ENCOUNTER → 2016-09-06 | Outpatient (CLI) | payer OTHER ==
[2016-09-06 14:34] LABS: BASO % 0.4 %; BASO ABS # 0.04 K/uL (0-0.2); COMPLETE YES; EOS % 2.2 %; IG% 0.3 %; LYMPH % 21.2 %; LYMPH ABS # 2.01 K/uL (1.2-3.4); MEAN CELL VOLUME 91.5 fL (80-100); MEAN CORPUSCULAR HEMOGLOBIN 30.7 pg (25-34); MEAN CORPUSCULAR HGB CONC 33.6 g/dl (32-36); MEAN PLATELET VOLUME 10.4 fL (7.4-10.4); MONO % 6.7 %; NEUT % 69.2 %; PLATELET COUNT 221 K/uL (130-400); RED BLOOD COUNT 4.59 M/uL (4.7-6.1); WHITE BLOOD COUNT 9.46 K/uL (4.8-10.8)
[2016-09-06 14:50] LABS: ALT/SGPT 34 U/L (12-78); AST/SGOT 12 U/L (15-37); BLOOD UREA NITROGEN 8 mg/dl (7-18); BUN/CREATININE RATIO 7.2 (10-20); CALCIUM 8.4 mg/dl (8.5-10.1); CARBON DIOXIDE 23 mmol/L (21-32); CHLORIDE 107 mmol/L (98-107); GLUCOSE 166 mg/dl (70-99); POTASSIUM 3.8 mmol/L (3.5-5.1); SODIUM 141 mmol/L (136-145)
[2016-09-06 15:01] LABS: ALB/GLOB RATIO 1.1 (0.9-2); ALKALINE PHOSPHATASE 128 U/L (45-117)
== END | disposition home or self-care (01) ==
LOC: C.LABSPEC 14:01
PROVIDERS: ATTEND Family Medicine
DX: R50.9 Fever, unspecified (principal); R53.83 Other fatigue

== ENCOUNTER → 2016-10-09 | Outpatient (CLI) | payer OTHER ==
[2016-10-09 18:19] LABS: BASO ABS # 0.12 K/uL (0-0.2); COMPLETE YES; EOS % 2.2 %; HEMATOCRIT 45.5 % (42-52); IG% 0.3 %; LYMPH % 22.8 %; LYMPH ABS # 2.65 K/uL (1.2-3.4); MEAN CELL VOLUME 89.9 fL (80-100); MEAN CORPUSCULAR HEMOGLOBIN 30.8 pg (25-34); MEAN CORPUSCULAR HGB CONC 34.3 g/dl (32-36); MEAN PLATELET VOLUME 10.6 fL (7.4-10.4); MONO % 7.1 %; NEUT % 66.6 %; PLATELET COUNT 249 K/uL (130-400); RED BLOOD COUNT 5.06 M/uL (4.7-6.1)
[2016-10-09 18:27] LABS: ALT/SGPT 25 U/L (12-78); AST/SGOT 10 U/L (15-37); BLOOD UREA NITROGEN 11 mg/dl (7-18); BUN/CREATININE RATIO 11.9 (10-20); CARBON DIOXIDE 25 mmol/L (21-32); CHLORIDE 106 mmol/L (98-107); CREATININE 0.96 mg/dl (0.60-1.40); GLUCOSE 146 mg/dl (70-99); POTASSIUM 4.2 mmol/L (3.5-5.1); SODIUM 139 mmol/L (136-145)
[2016-10-09 18:29] LABS: ALB/GLOB RATIO 1.1 (0.9-2); ALKALINE PHOSPHATASE 138 U/L (45-117); CHOLESTEROL 172 mg/dl (0-200); CHOLESTEROL/HDL RATIO 5.5; HDL CHOLESTEROL 31 mg/dl; LDL CHOLESTEROL CALCULATED 81 mg/dl; TRIGLYCERIDES 299 mg/dl (0-150); VERY LOW DENSITY LIPOPROT CALC 60 mg/dl
[2016-10-09 18:32] LABS: CALCIUM 8.6 mg/dl (8.5-10.1)
[2016-10-10 07:02] LABS: ESTIMATED AVERAGE GLUCOSE 146 mg/dl; HA1C FLAG Normal (Normal)
== END | disposition home or self-care (01) ==
LOC: C.LABSPEC 17:57
PROVIDERS: ATTEND Family Medicine
DX: E11.9 Type 2 diabetes mellitus without complications (principal); E78.2 Mixed hyperlipidemia; J45.30 Mild persistent asthma, uncomplicated

== ENCOUNTER → 2017-01-10 | Outpatient (CLI) | payer OTHER ==
[2017-01-10 18:00] LABS: BASO % 0.5 %; BASO ABS # 0.07 K/uL (0-0.2); COMPLETE YES; EOS % 2.5 %; IG% 0.7 %; LYMPH % 27.3 %; LYMPH ABS # 3.65 K/uL (1.2-3.4); MEAN CELL VOLUME 88.9 fL (80-100); MEAN CORPUSCULAR HGB CONC 33.8 g/dl (32-36); MEAN PLATELET VOLUME 10.5 fL (7.4-10.4); MONO % 7.1 %; NEUT % 61.9 %; PLATELET COUNT 221 K/uL (130-400); RED BLOOD COUNT 5.06 M/uL (4.7-6.1); WHITE BLOOD COUNT 13.35 K/uL (4.8-10.8)
[2017-01-10 18:14] LABS: ALKALINE PHOSPHATASE 106 U/L (45-117); ALT/SGPT 18 U/L (12-78); AST/SGOT 11 U/L (15-37); BLOOD UREA NITROGEN 10 mg/dl (7-18); BUN/CREATININE RATIO 10.5 (10-20); CALCIUM 8.5 mg/dl (8.5-10.1); CARBON DIOXIDE 23 mmol/L (21-32); CHLORIDE 102 mmol/L (98-107); CREATININE 0.94 mg/dl (0.60-1.40); GLUCOSE 227 mg/dl (70-99); POTASSIUM 3.9 mmol/L (3.5-5.1); SODIUM 135 mmol/L (136-145)
[2017-01-10 18:50] LABS: ESTIMATED AVERAGE GLUCOSE 203 mg/dl; HA1C FLAG Normal (Normal)
== END | disposition home or self-care (01) ==
LOC: C.LABSPEC 17:39
PROVIDERS: ATTEND Family Medicine
DX: E11.9 Type 2 diabetes mellitus without complications (principal)

== ENCOUNTER → 2017-04-11 | Outpatient (CLI) | payer OTHER ==
[2017-04-11 18:25] LABS: BASO % 0.7 %; BASO ABS # 0.09 K/uL (0-0.2); COMPLETE YES; EOS % 2.4 %; HEMATOCRIT 44.1 % (42-52); IG% 0.7 %; LYMPH % 26.9 %; LYMPH ABS # 3.32 K/uL (1.2-3.4); MEAN CELL VOLUME 88.4 fL (80-100); MEAN CORPUSCULAR HEMOGLOBIN 31.9 pg (25-34); MEAN CORPUSCULAR HGB CONC 36.1 g/dl (32-36); MEAN PLATELET VOLUME 11.7 fL (7.4-10.4); MONO % 7.6 %; NEUT % 61.7 %; PLATELET COUNT 203 K/uL (130-400); RED BLOOD COUNT 4.99 M/uL (4.7-6.1); WHITE BLOOD COUNT 12.32 K/uL (4.8-10.8)
[2017-04-11 19:46] LABS: ALB/GLOB RATIO 0.9 (0.9-2); ALKALINE PHOSPHATASE 175 U/L (45-117); ALT/SGPT 28 U/L (12-78); AST/SGOT 13 U/L (15-37); BLOOD UREA NITROGEN 20 mg/dl (7-18); BUN/CREATININE RATIO 17.4 (10-20); CALCIUM 8.6 mg/dl (8.5-10.1); CARBON DIOXIDE 25 mmol/L (21-32); CHLORIDE 99 mmol/L (98-107); CHOLESTEROL 201 mg/dl (0-200); CREATININE 1.15 mg/dl (0.60-1.40); GLUCOSE 384 mg/dl (70-99); HDL CHOLESTEROL 25 mg/dl; POTASSIUM 3.9 mmol/L (3.5-5.1); SODIUM 132 mmol/L (136-145); TRIGLYCERIDES 1084 mg/dl (0-150)
[2017-04-11 20:09] LABS: BETA-HYDROXYBUTYRATE 1.81 mg/dL (0.2-2.81)
[2017-04-12 06:52] LABS: ESTIMATED AVERAGE GLUCOSE 226 mg/dl; HA1C FLAG Normal (Normal)
[2017-04-12 14:42] LABS: THYROID STIMULATING HORMONE 3.83 uIu/ml (0.300-4.500)
== END | disposition home or self-care (01) ==
LOC: C.LABSPEC 17:53
PROVIDERS: ATTEND Family Medicine
DX: E11.9 Type 2 diabetes mellitus without complications (principal); E78.2 Mixed hyperlipidemia; J45.30 Mild persistent asthma, uncomplicated